=== PATIENT | male | born 1990 | race Caucasian/White ===

== ENCOUNTER 2017-05-12 19:56 | Emergency (ER) | payer OTHER ==
[~2017-05-12] VITALS: Ht 188 cm; Wt 81.6 kg
[~2017-05-12 19:56] MED LIST: ADVIL200 MG PO; CLEOCIN HCL300 MG PO; NORCO 5-325 TA1 EACH PO; PERCOCET 325 MG1 TA2 PO; VICODIN5-300 PO
[2017-05-12 20:00] VITALS: BP 153/104
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
[2017-05-12 20:58] LABS: ABSOLUTE BASOPHIL COUNT 0 /CUMM (0.0-0.2); ABSOLUTE EOSINOPHIL COUNT 0 /CUMM (0.0-0.7); ABSOLUTE GRANULOCYTE CT 12.1 /CUMM (1.4-6.5); ABSOLUTE LYMPH COUNT 0.9 /CUMM (1.2-3.4); ABSOLUTE MONOCYTE COUNT 0.7 /CUMM (0.10-0.60); BASOPHIL % 0.1 % (0.0-2.0); EOSINOPHIL % 0 % (0-5); HEMATOCRIT 44.5 % (42-52); MEAN CORPUSCULAR HGB 30.4 PG (27.0-31.0); MEAN CORPUSCULAR VOLUME 89.6 FL (80.0-94.0); MEAN PLATELET VOLUME 8.4 FL (7.4-10.4); PLATELET COUNT 293 /CUMM (130-400); RBC DISTRIBUTION WIDTH 13.9 % (11.5-14.5); RED BLOOD CELL CT 4.97 /CUMM (4.70-6.10); WHITE BLOOD CELL COUNT 13.7 /CUMM (4.8-10.8)
[2017-05-12 21:02] LABS: PT 11.5 SEC (9.4-12.5)
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
== END 2017-05-12 21:00 | disposition short-term general hospital (02) ==
LOC: ERH 19:56
PROVIDERS: Pediatrics
DX: S06.5X0A Traumatic subdural hemorrhage without loss of consciousness, initial encounter (principal); S02.82XA Fracture of other specified skull and facial bones, left side, initial encounter for closed fracture; S02.91XA Unspecified fracture of skull, initial encounter for closed fracture; S06.0X0A Concussion without loss of consciousness, initial encounter; S01.81XA Laceration without foreign body of other part of head, initial encounter; Y04.0XXA Assault by unarmed brawl or fight, initial encounter; Y93.9 Activity, unspecified
CPT/HCPCS: 74176; 90471; 90714; 99291; G0480; J3101